=== PATIENT | female | born 1980 | race Caucasian/White ===

== ENCOUNTER → 2019-08-07 | Outpatient (CLI) | payer BC ==
[~2019-08-07] MED LIST: IBU800 M1 PO; IRON325 M2 PO; PRENATAL1 TA1 PO; PROBIOTIC FORMU1 CAP PO; ZANTAC 150MG T150 MG PO; ZANTAC 300300 MG PO
== END ==
LOC: MC.RAD 16:18
DX: Z12.31 Encounter for screening mammogram for malignant neoplasm of breast (principal)

== ENCOUNTER → 2020-10-20 | Outpatient (CLI) | payer BC | LOC: MC.RAD 13:30 | DX: Z12.31 Encounter for screening mammogram for malignant neoplasm of breast (principal) ==

== ENCOUNTER → 2022-01-26 | Outpatient (CLI) | payer OTHER | LOC: MC.RAD 14:45 | DX: Z12.31 Encounter for screening mammogram for malignant neoplasm of breast (principal) ==